=== PATIENT | male | born 1970 | race Hispanic/Latino ===

== ENCOUNTER 2022-09-10 15:26 | Emergency (ER) | payer OTHER ==
[~2022-09-10] VITALS: Ht 180.3 cm; Wt 106.6 kg
[2022-09-10 15:59] VITALS: O2SAT 100
[2022-09-10] MEDS ORDERED: HYDROCODONE/APAP 10MG-325MG TAB PO ONE (16:15)
[2022-09-10] MEDS ORDERED: NAPROXEN250 MG PO (17:43)
[2022-09-10] MEDS ORDERED: HYDROCODON-ACE1 EA12 PO (17:44)
== END 2022-09-10 18:00 | disposition home or self-care (01) ==
LOC: ER 15:33
DX: S52.591A Other fractures of lower end of right radius, initial encounter for closed fracture (principal); W01.0XXA Fall on same level from slipping, tripping and stumbling without subsequent striking against object, initial encounter; Y93.01 Activity, walking, marching and hiking; Y92.89 Other specified places as the place of occurrence of the external cause; I10 Essential (primary) hypertension; E11.9 Type 2 diabetes mellitus without complications; E78.5 Hyperlipidemia, unspecified; I25.10 Atherosclerotic heart disease of native coronary artery without angina pectoris; I25.2 Old myocardial infarction
CPT/HCPCS: 99283